=== PATIENT | male | born 1965 | race Caucasian/White ===

== ENCOUNTER 2018-01-12 17:35 | Emergency (ER) | payer BC ==
[~2018-01-12] VITALS: Ht 180.3 cm; Wt 99.8 kg
[~2018-01-12 17:35] MED LIST: AMOXICILLIN 50500 MG PO; AURALGAN EAR DR14 ML OT; CORTISPORIN OTI10 M2 OT
[2018-01-12] MEDS ORDERED: LIPITOR 20 MG T20 M1 PO (17:45)
[2018-01-12] MEDS ORDERED: DOXYCYCLINE 10100 MG PO (17:45)
[2018-01-12] MEDS ORDERED: BUSPIRONE HCL10 MG PO (17:45)
[2018-01-12] MEDS ORDERED: HYDROCODONE-AP1 EAC6 PO (18:07)
[2018-01-12] MEDS ORDERED: ROBAXIN 750 MG750 M1 PO (18:07)
[2018-01-12] MEDS ORDERED: NAPROSYN500 MG PO (18:07)
[2018-01-12 18:13] VITALS: BP 138/84
== END 2018-01-12 18:13 | disposition home or self-care (01) ==
LOC: M.ERS 17:35
DX: S46.911A Strain of unspecified muscle, fascia and tendon at shoulder and upper arm level, right arm, initial encounter (principal); F17.210 Nicotine dependence, cigarettes, uncomplicated; Z88.8 Allergy status to other drugs, medicaments and biological substances; X58.XXXA Exposure to other specified factors, initial encounter; Y93.89 Activity, other specified; Y92.89 Other specified places as the place of occurrence of the external cause; Y99.8 Other external cause status

== ENCOUNTER 2018-03-06 15:02 | Emergency (ER) | payer BC ==
[~2018-03-06] VITALS: Ht 177.8 cm; Wt 91.2 kg
[~2018-03-06 15:02] MED LIST changes: +BUSPIRONE HCL10 MG PO; +DOXYCYCLINE 10100 MG PO; +HYDROCODONE-AP1 EAC6 PO; +LIPITOR 20 MG T20 M1 PO; +NAPROSYN500 MG PO; +ROBAXIN 750 MG750 M1 PO
[2018-03-06] MEDS ORDERED: HYDROCODONE-AP1 EAC6 PO (15:36)
[2018-03-06 16:28] VITALS: BP 128/88
== END 2018-03-06 16:29 | disposition home or self-care (01) ==
LOC: M.ERS 15:02
DX: M25.521 Pain in right elbow (principal); F17.210 Nicotine dependence, cigarettes, uncomplicated; Z88.8 Allergy status to other drugs, medicaments and biological substances

== ENCOUNTER 2018-04-28 16:27 | Emergency (ER) | payer BC ==
[~2018-04-28] VITALS: Ht 154.9 cm; Wt 93.0 kg
[2018-04-28] MEDS ORDERED: MEDROLDOSEPACK PO (17:45)
[2018-04-28 18:02] VITALS: BP 118/77
== END 2018-04-28 18:03 | disposition home or self-care (01) ==
LOC: M.ERS 16:27
DX: M25.521 Pain in right elbow (principal); Z88.8 Allergy status to other drugs, medicaments and biological substances

== ENCOUNTER 2018-11-23 13:06 | Emergency (ER) | payer OTHER ==
[~2018-11-23] VITALS: Ht 177.8 cm; Wt 47.2 kg
[~2018-11-23 13:06] MED LIST changes: +MEDROLDOSEPACK PO
[2018-11-23] MEDS ORDERED: ZANAFLEX4 MG PO (14:41)
[2018-11-23] MEDS ORDERED: MEDROLDOSEPACK PO (14:41)
[2018-11-23] MEDS ORDERED: NABUMETONE 750750 M1 PO (14:41)
[2018-11-23] MEDS ORDERED: NORCO 5-325 TA1 EACH PO (15:25)
[2018-11-23 15:32] VITALS: BP 138/95
== END 2018-11-23 15:36 | disposition home or self-care (01) ==
LOC: M.ERS 13:06
DX: S16.1XXA Strain of muscle, fascia and tendon at neck level, initial encounter (principal); F17.210 Nicotine dependence, cigarettes, uncomplicated; Z88.8 Allergy status to other drugs, medicaments and biological substances; X58.XXXA Exposure to other specified factors, initial encounter; Y93.89 Activity, other specified; Y92.89 Other specified places as the place of occurrence of the external cause; Y99.8 Other external cause status

== ENCOUNTER 2019-04-15 17:37 | Emergency (ER) | payer OTHER ==
[~2019-04-15] VITALS: Ht 177.8 cm; Wt 92.5 kg
[~2019-04-15 17:37] MED LIST changes: +NABUMETONE 750750 M1 PO; +NORCO 5-325 TA1 EACH PO; +ZANAFLEX4 MG PO
[2019-04-15] MEDS ORDERED: NORCO 5-325 TA1 EACH PO (19:11)
[2019-04-15 19:20] VITALS: BP 132/68
== END 2019-04-15 19:21 | disposition home or self-care (01) ==
LOC: M.ERS 17:37
DX: S93.491A Sprain of other ligament of right ankle, initial encounter (principal); F17.210 Nicotine dependence, cigarettes, uncomplicated; Z88.8 Allergy status to other drugs, medicaments and biological substances; X58.XXXA Exposure to other specified factors, initial encounter; Y93.89 Activity, other specified; Y92.89 Other specified places as the place of occurrence of the external cause; Y99.8 Other external cause status

== ENCOUNTER 2019-08-22 17:34 | Emergency (ER) | payer OTHER ==
[~2019-08-22] VITALS: Ht 177.8 cm; Wt 90.7 kg
[2019-08-22] MEDS ORDERED: NORFLEX100 MG PO (17:53)
[2019-08-22] MEDS ORDERED: PREDNISONE 10 M10 M1 PO (17:53)
[2019-08-22] MEDS ORDERED: NORCO 5-325 TA1 EAC1 PO (17:53)
[2019-08-22 18:13] VITALS: BP 130/81
== END 2019-08-22 18:19 | disposition home or self-care (01) ==
LOC: M.ERS 17:34
DX: M54.9 Dorsalgia, unspecified (principal); Z98.890 Other specified postprocedural states; Z88.4 Allergy status to anesthetic agent; Z88.3 Allergy status to other anti-infective agents

== ENCOUNTER 2020-04-19 16:08 | Emergency (ER) | payer BC ==
[~2020-04-19] VITALS: Ht 180.3 cm; Wt 79.4 kg
[~2020-04-19 16:08] MED LIST changes: +NORCO 5-325 TA1 EAC1 PO; +NORFLEX100 MG PO; +PREDNISONE 10 M10 M1 PO
[2020-04-19 17:05] VITALS: BP 133/80
== END 2020-04-19 17:05 | disposition home or self-care (01) ==
LOC: M.ERS 16:08
DX: S93.491A Sprain of other ligament of right ankle, initial encounter (principal); Z88.8 Allergy status to other drugs, medicaments and biological substances; X58.XXXA Exposure to other specified factors, initial encounter; Y93.89 Activity, other specified; Y92.89 Other specified places as the place of occurrence of the external cause; Y99.8 Other external cause status

== ENCOUNTER 2021-04-23 13:05 | Emergency (ER) | payer BC ==
[~2021-04-23] VITALS: Ht 177.8 cm; Wt 90.7 kg
[2021-04-23] MEDS ORDERED: MEDROLDOSEPACK PO (13:39)
[2021-04-23] MEDS ORDERED: FLEXERIL PO (13:39)
[2021-04-23] MEDS ORDERED: HYDROCODON-ACE1 EAC7 PO (13:42)
[2021-04-23 14:29] VITALS: BP 122/86
== END 2021-04-23 14:30 | disposition home or self-care (01) ==
LOC: M.ERS 13:05
DX: M54.42 Lumbago with sciatica, left side (principal); Z88.8 Allergy status to other drugs, medicaments and biological substances

== ENCOUNTER 2021-05-22 09:28 | Emergency (ER) | payer BC ==
[~2021-05-22] VITALS: Ht 180.3 cm; Wt 90.7 kg
[~2021-05-22 09:28] MED LIST changes: +FLEXERIL PO; +HYDROCODON-ACE1 EAC7 PO
[2021-05-22] MEDS ORDERED: IBUPROFEN 800800 M1 PO (11:00)
[2021-05-22] MEDS ORDERED: NORCO5 PO (11:16)
[2021-05-22 11:42] VITALS: BP 124/68
== END 2021-05-22 11:43 | disposition home or self-care (01) ==
LOC: M.ERS 09:28
DX: M77.52 Other enthesopathy of left foot and ankle (principal); Z88.8 Allergy status to other drugs, medicaments and biological substances